=== PATIENT | female | born 1940 | race Caucasian/White ===

== ENCOUNTER 2018-01-06 04:00 | Inpatient (IN) ==
[2018-01-05 10:46] LABS: Basophils % 0.5 % (0.0-0.8); Eosinophils # 0.2 10*3/uL (0.0-0.87); Eosinophils % 2.5 % (0.00-10.9); Hematocrit 36.8 VOL% (35.7-47.0); Hemoglobin 11.9 GM/DL (12.0-16.0); Immature Granulocytes % 0.5 %; Immature Granulocytes Absolute 0.03 #; Lymphocytes % 16.2 % (21.3-54.2); Mean Corpuscular HGB Conc 32.3 GM/DL (32-36); Mean Corpuscular Hemoglobin 27 PG (27-34); Mean Corpuscular Volume 84.6 FL (87-102); Mean Platelet Volume 11.4 FL (9.6-12.0); Monocytes # 0.5 10*3/uL (0.11-0.8); Neutrophils # 4.6 10*3/uL (1.4-7.4); Neutrophils % 72.3 % (38.7-73.9); Platelet Count 181 T/CUMM (130-400); Red Blood Count 4.35 MC/CUMM (3.8-5.5); Red Cell Distribution Width 15.5 % (9.3-17.3); White Blood Count 6.4 T/CUMM (4-12)
[2018-01-05 10:55] LABS: PT Patient Result 10.2 SECS; Partial Thromboplastin Time 24.4 SECS (0-40)
[2018-01-05 11:04] LABS: Apearance,Urine CLEAR (Clear); Bacteria,Urine Moderate /HPF (Few); Bilirubin,Urine Negative (Negative); Blood, Urine Negative (Negative); Glucose,Urine (UA) Negative (Negative); Ketones,Urine Negative (Negative); Mucus,Urine Occasional /LPF (Occasional); Nitrite,Urine Positive (Negative); Protein,Urine Negative; RBC,Urine 1 /HPF (0-4); Squamous Epithelial Cell,Urine Occasional /HPF (0-10); Urine Color Yellow (Yellow); Urine Specific Gravity 1.013 (1.001-1.035); Urine Urobilinogen < 2.0 EU/DL (0.2-1.0); WBC,Urine 9 /HPF (0-6)
[2018-01-05 11:25] LABS: Osmolality,Calculated 281.4 MOS/KG (273-304)
[~2018-01-06 04:00] MED LIST: SODIUM CHLORIDE 0.9% 1,000 ML IV PRN
[2018-01-06] MEDS ORDERED: TISSUE ADHESIVE 1 EACH APPLICATOR TOP ONE (05:18)
[2018-01-06] MEDS ORDERED: VANCOMYCIN 1,000 MG VIAL ONE ×2 (05:18→18:28)
[2018-01-06] MEDS ORDERED: FAMOTIDINE 20 MG TABLET PO ONE (06:30)
[2018-01-06] MEDS ORDERED: CEFUROXIME INJ 1,500 MG in SYRINGE 1 EACH IV ONE (06:30)
[2018-01-06] MEDS ORDERED: DIAZEPAM 2 MG TABLET PO ONE (06:30)
[2018-01-06] MEDS ORDERED: DIAZEPAM 2 MG TABLET ONE (06:36)
[2018-01-06] MEDS ORDERED: FAMOTIDINE 20 MG TABLET ONE (06:36)
[2018-01-06] MEDS ORDERED: CEFUROXIME 1,500 MG VIAL ONE ×2 (07:13→19:21)
[2018-01-06] MEDS ORDERED: CALCIUM CHLORIDE 1,000 MG/10 ML SYRINGE IV ONE (07:32)
[2018-01-06] MEDS ORDERED: POTASSIUM CHLORIDE RIDER 0 ML IV ONE (07:32)
[2018-01-06] MEDS ORDERED: NITROGLYCERIN DRIP 0 MG/0 ML BOTTLE IV ONE (07:33)
[2018-01-06] MEDS ORDERED: SODIUM BICARBONATE 50 MEQ/50 ML SYRINGE IV ONE (07:33)
[2018-01-06] MEDS ORDERED: ALBUMIN 5% 12.5 GM/250 ML VIAL IV ONE (07:33)
[2018-01-06 07:58] LABS: ABG Base Excess 1.7 MMOL/L (-2.5-2.5); ABG HCO3 25.9 MMOL/L (20-26); ABG PCO2 39.8 MM HG (35-48); ABG PH 7.424 (7.35-7.45); ABG TCO2 23.7 MMOL/L (23-27); Glucose Heart Surgery 116 MG/DL (74-106); Hematocrit Heart Surgery 31.1 PERCENT (37-47); Hemoglobin Heart Surgery 10.1 G/DL (12.0-16.0); Ionized Calcium Arterial 1.09 MMOL/L (1.21-1.46); PCO2 Patient Temp Arterial 39.8 MMHG; PH Patient Temp Arterial 7.424; Patient Temperature 37 CELCIUS; Sodium Heart/CVR 137 MMOL/L (135-145)
[2018-01-06 08:17] LABS: Apearance,Urine CLEAR (Clear); Bacteria,Urine Many /HPF (Few); Bilirubin,Urine Negative (Negative); Blood, Urine Negative (Negative); Glucose,Urine (UA) Negative (Negative); Ketones,Urine Negative (Negative); Mucus,Urine Occasional /LPF (Occasional); Nitrite,Urine Positive (Negative); Protein,Urine Negative; RBC,Urine 1 /HPF (0-4); Urine Color Yellow (Yellow); Urine Urobilinogen < 2.0 EU/DL (0.2-1.0); WBC,Urine 18 /HPF (0-6)
[2018-01-06] MEDS ORDERED: HEPARIN 10,000 UNIT/10 ML VIAL ONE ×2 (08:26→09:58)
[2018-01-06] MEDS ORDERED: HEPARIN/NACL 0.9% 2 UNITS/ML 500 ML IV ONE (08:33)
[2018-01-06] MEDS ORDERED: AMINOCAPROIC ACID 5,000 MG/20 ML VIAL IV ONE (08:33)
[2018-01-06 08:43] LABS: Hemoglobin Heart Surgery 6.6 G/DL (12.0-16.0); PCO2 Patient Temp Venous 29.7 MM HG; PH Patient Temp Venous 7.551; PO2 Patient Temp Venous 42.3 MM HG; Potassium Heart/CVR 4.6 MMOL/L (3.5-5.1); VBG Base Excess 2.8 MEQ/L (0-4); VBG HCO3 25.9 MEQ/L (24-28); VBG Oxygen Saturation 83.8 %; VBG PCO2 32.4 MMHG (41-51); VBG PH 7.52; VBG PO2 48.7 MMHG (17-40)
[2018-01-06 09:17] LABS: Hematocrit Heart Surgery 24.4 PERCENT (37-47); Hemoglobin Heart Surgery 7.8 G/DL (12.0-16.0); PCO2 Patient Temp Venous 29.8 MM HG; PH Patient Temp Venous 7.53; PO2 Patient Temp Venous 48.8 MM HG; Potassium Heart/CVR 4.4 MMOL/L (3.5-5.1); VBG Base Excess 2.6 MEQ/L (0-4); VBG HCO3 26.7 MEQ/L (24-28); VBG Oxygen Saturation 92.2 %; VBG PCO2 34.4 MMHG (41-51); VBG PH 7.485; VBG PO2 59.4 MMHG (17-40)
[2018-01-06] MEDS ORDERED: PROTAMINE SULFATE 250 MG/25 ML VIAL IV ONE (09:57)
[2018-01-06] MEDS ORDERED: ALBUMIN 25% 25 GM/100 ML VIAL IV ONE (09:57)
[2018-01-06] MEDS ORDERED: MANNITOL 12.5 GM/50 ML VIAL IV ONE (09:58)
[2018-01-06] MEDS ORDERED: FUROSEMIDE 20 MG/2 ML VIAL ONE (09:58)
[2018-01-06] MEDS ORDERED: PHENYLEPHRINE 1 MG/10 ML SYRINGE IV ONE (09:58)
[2018-01-06] MEDS ORDERED: methylPREDNISolone SOD SUC 1,000 MG/8 ML VIAL ONE (09:58)
[2018-01-06] MEDS ORDERED: PROTAMINE SULFATE 50 MG/5 ML VIAL IV ONE ×3 (09:58→12:00)
[2018-01-06 10:07] LABS: ABG Base Excess -0.9 MMOL/L (-2.5-2.5); ABG HCO3 22.7 MMOL/L (20-26); ABG Oxygen Saturation 99.1 % (95-100); ABG PCO2 33.3 MM HG (35-48); ABG PH 7.452 (7.35-7.45); ABG PO2 430.9 MM HG (80-95); ABG TCO2 23.8 MMOL/L (23-27); Glucose Heart Surgery 183 MG/DL (74-106); Hemoglobin Heart Surgery 8.4 G/DL (12.0-16.0); Ionized Calcium Arterial 1.06 MMOL/L (1.21-1.46); PCO2 Patient Temp Arterial 33.3 MMHG; PH Patient Temp Arterial 7.452; PO2 Patient Temp Arterial 430.9 MM HG; Patient Temperature 37 CELCIUS; Potassium Heart/CVR 4.3 MMOL/L (3.5-5.1); Sodium Heart/CVR 131 MMOL/L (135-145)
[2018-01-06] MEDS: SODIUM CHLORIDE 0.45% 1,000 ML IV SCH ×2 (11:15)
[2018-01-06] MEDS ORDERED: MIDAZOLAM 10 MG/2 ML VIAL ONE ×2 (11:30→21:17)
[2018-01-06] MEDS ORDERED: CALCIUM CHLORIDE 1,000 MG/10 ML VIAL IV ONE (11:30)
[2018-01-06] MEDS ORDERED: ePHEDrine 50 MG/ML AMP ONE (11:30)
[2018-01-06] MEDS ORDERED: SEVOFLURANE 1 UNIT/15 MINUTE INH ONE ×2 (11:30→21:17)
[2018-01-06] MEDS ORDERED: VECURONIUM 10 MG VIAL IV ONE (11:31)
[2018-01-06] MEDS ORDERED: SODIUM CHLORIDE 0.9% 1,000 ML IV ONE (11:31)
[2018-01-06] MEDS ORDERED: ETOMIDATE 40 MG/20 ML VIAL IV ONE ×2 (11:31→21:18)
[2018-01-06] MEDS ORDERED: SODIUM CHLORIDE 0.9% 500 ML IV ONE (11:31)
[2018-01-06] MEDS ORDERED: PHENYLEPHRINE 10 MG/1 ML VIAL IV ONE ×2 (11:31→21:17)
[2018-01-06] MEDS ORDERED: NITROGLYCERIN DRIP 50 MG/250 ML BOTTLE IV ONE ×2 (11:31→21:25)
[2018-01-06] MEDS ORDERED: ACETAMINOPHEN 650 MG SUPP RECTAL PRN (11:32)
[2018-01-06] MEDS ORDERED: MIDAZOLAM 2 MG/2 ML VIAL IV PRN (11:32)
[2018-01-06] MEDS ORDERED: MORPHINE 10 MG/1 ML VIAL IV PRN (11:32)
[2018-01-06] MEDS ORDERED: CALCIUM CHLORIDE 1,000 MG/10 ML SYRINGE IV PRN (11:32)
[2018-01-06] MEDS ORDERED: MAGNESIUM SULF RIDER 4 GM in PREMIX 1 EACH IV PRN (11:32)
[2018-01-06] MEDS ORDERED: POTASSIUM CHLORIDE RIDER 20 MEQ in PREMIX 1 EACH IV PRN (11:32)
[2018-01-06] MEDS ORDERED: INSULIN REGULAR 100 UNIT/ML IV PRN (11:32)
[2018-01-06] MEDS ORDERED: ONDANSETRON 4 MG/2 ML VIAL IV PRN (11:32)
[2018-01-06] MEDS ORDERED: MORPHINE 4 MG/1 ML VIAL IV PRN (11:32)
[2018-01-06] MEDS ORDERED: DEXTROSE 50% 25 GM/50 ML VIAL IV PRN ×2 (11:32)
[2018-01-06] MEDS ORDERED: CHLORHEXIDINE 4% SOLN 118 ML BOTTLE TOP PRN (11:32)
[2018-01-06] MEDS ORDERED: SODIUM CHLORIDE 0.9% 250 ML IV PRN (11:32)
[2018-01-06 11:40] LABS: ABG Base Excess -1.5 MMOL/L (-2.5-2.5); ABG HCO3 23.2 MMOL/L (20-26); ABG PCO2 30.6 MM HG (35-48); ABG TCO2 20.1 MMOL/L (23-27); Glucose Heart Surgery 164 MG/DL (74-106); Hematocrit Heart Surgery 26.6 PERCENT (37-47); Hemoglobin Heart Surgery 8.6 G/DL (12.0-16.0); Potassium Heart/CVR 4.2 MMOL/L (3.5-5.1)
[2018-01-06 11:42] LABS: Basophils % 0.2 % (0.0-0.8); Eosinophils # 0.1 10*3/uL (0.0-0.87); Eosinophils % 0.9 % (0.00-10.9); Hematocrit 25.7 VOL% (35.7-47.0); Lymphocytes # 1.2 10*3/uL (1.4-4.0); Mean Corpuscular HGB Conc 32.7 GM/DL (32-36); Mean Corpuscular Hemoglobin 28 PG (27-34); Mean Corpuscular Volume 85.7 FL (87-102); Mean Platelet Volume 12.4 FL (9.6-12.0); Monocytes # 0.5 10*3/uL (0.11-0.8); Monocytes % 4.6 % (1.7-12.7); Neutrophils # 8.4 10*3/uL (1.4-7.4); Neutrophils % 81.3 % (38.7-73.9)
[2018-01-06 11:47] LABS: INR 1.2; PT Patient Result 12.7 SECS; Partial Thromboplastin Time 26.8 SECS (0-40)
[2018-01-06 11:49] LABS: Blood Urea Nitrogen 24 MG/DL (7-18); Calcium 7.9 MG/DL (8.5-10.1); Glucose 170 MG/DL (74-106); Osmolality,Calculated 282.7 MOS/KG (273-304); Potassium 4.3 MMOL/L (3.5-5.1); Sodium 138 MMOL/L (136-145)
[2018-01-06 11:54] LABS: Lactic Acid 4.6 MMOL/L (0.4-2.0)
[2018-01-06] MEDS: ALBUMIN 5% 12.5 GM in PREMIX 1 EACH IV PRN ×3 (12:00→13:51)
[2018-01-06] MEDS ORDERED: INSULIN REGULAR DRIP 100 ML IV SCH (12:00)
[2018-01-06 12:08] LABS: Hemoglobin 8.4 GM/DL (12.0-16.0); White Blood Count 10.4 T/CUMM (4-12)
[2018-01-06 12:09] LABS: Platelet Count 106 T/CUMM (130-400)
[2018-01-06] MEDS ORDERED: SODIUM CHLORIDE 0.9% 1,000 ML IV PRN (14:02)
[2018-01-06 15:16] LABS: ABG Base Excess 1.3 MMOL/L (-2.5-2.5); ABG HCO3 25.6 MMOL/L (20-26); ABG Oxygen Saturation 99.9 % (95-100); ABG PH 7.464 (7.35-7.45); ABG TCO2 24.6 MMOL/L (23-27); Glucose Heart Surgery 172 MG/DL (74-106); Potassium Heart/CVR 3.8 MMOL/L (3.5-5.1)
[2018-01-06 15:20] LABS: Hematocrit Heart Surgery 13.2 PERCENT (37-47); Hemoglobin Heart Surgery < 5.0 G/DL (12.0-16.0)
[2018-01-06] MEDS ORDERED: CALCIUM GLUCONATE 1,000 MG in SODIUM CHLORIDE 0.9% 100 ML IV ONE (16:44)
[2018-01-06] MEDS: HYDROmorphone 2 MG/1 ML VIAL IV PRN ×2 (17:35→23:18)
[2018-01-06] MEDS: CEFUROXIME INJ 1,500 MG in SYRINGE 1 EACH IV SCH ×2 (19:25→21:41)
[2018-01-06] MEDS ORDERED: LACTATED RINGERS 1,000 ML IV ONE (21:18)
[2018-01-06] MEDS ORDERED: ROCURONIUM 100 MG/10 ML VIAL IV ONE (21:18)
[2018-01-06] MEDS ORDERED: GLYCOPYRROLATE 0.4 MG/2 ML VIAL ONE (21:18)
[2018-01-06] MEDS ORDERED: SODIUM CHLORIDE 0.9% 250 ML IV ONE (21:18)
[2018-01-06 21:23] LABS: ABG Base Excess 0.9 MMOL/L (-2.5-2.5); ABG HCO3 25.3 MMOL/L (20-26); ABG Oxygen Saturation 98.5 % (95-100); ABG PCO2 34.6 MM HG (35-48); ABG PH 7.458 (7.35-7.45); ABG PO2 93.8 MM HG (80-95); ABG TCO2 22.8 MMOL/L (23-27); Glucose Heart Surgery 97 MG/DL (74-106); Hematocrit Heart Surgery 25.6 PERCENT (37-47); Hemoglobin Heart Surgery 8.2 G/DL (12.0-16.0); Potassium Heart/CVR 3.4 MMOL/L (3.5-5.1)
[2018-01-06] MEDS: NITROGLYCERIN DRIP 50 MG/250 ML BOTTLE IV PRN (21:40)
[2018-01-06 21:42] LABS: Basophils % 0.1 % (0.0-0.8); Eosinophils % 0.1 % (0.00-10.9); Hematocrit 21.8 VOL% (35.7-47.0); Hemoglobin 7.6 GM/DL (12.0-16.0); Immature Granulocytes % 0.5 %; Immature Granulocytes Absolute 0.04 #; Lymphocytes # 0.5 10*3/uL (1.4-4.0); Lymphocytes % 6.3 % (21.3-54.2); Mean Corpuscular HGB Conc 34.9 GM/DL (32-36); Mean Corpuscular Hemoglobin 29 PG (27-34); Mean Corpuscular Volume 83.2 FL (87-102); Mean Platelet Volume 10.9 FL (9.6-12.0); Monocytes # 0.3 10*3/uL (0.11-0.8); Monocytes % 4.3 % (1.7-12.7); Neutrophils # 6.8 10*3/uL (1.4-7.4); Neutrophils % 88.7 % (38.7-73.9); Platelet Count 115 T/CUMM (130-400); Red Blood Count 2.62 MC/CUMM (3.8-5.5); White Blood Count 7.7 T/CUMM (4-12)
[2018-01-06] MEDS: CHLORHEXIDINE 0.12% ORAL RINSE 60 ML BOTTLE SWISH/SPIT SCH (21:46)
[2018-01-06 21:55] LABS: Albumin 2.8 G/DL (3.4-5.0); Bilirubin,Total 1.9 MG/DL (0.2-1.0); Calcium 7.5 MG/DL (8.5-10.1); Osmolality,Calculated 283.3 MOS/KG (273-304); Potassium 3.5 MMOL/L (3.5-5.1); Total Protein 4.6 G/DL (6.4-8.3)
[2018-01-06 21:58] LABS: INR 1.1; PT Patient Result 11.3 SECS; Partial Thromboplastin Time 26.4 SECS (0-40)
[2018-01-07] MEDS: SODIUM CHLORIDE 0.45% 1,000 ML IV SCH ×4 (02:00→14:44)
[2018-01-07 04:31] LABS: Basophils % 0.1 % (0.0-0.8); Hematocrit 28.2 VOL% (35.7-47.0); Immature Granulocytes % 0.4 %; Immature Granulocytes Absolute 0.04 #; Lymphocytes # 0.6 10*3/uL (1.4-4.0); Lymphocytes % 5.7 % (21.3-54.2); Mean Corpuscular HGB Conc 35.1 GM/DL (32-36); Mean Corpuscular Hemoglobin 30 PG (27-34); Mean Corpuscular Volume 84.4 FL (87-102); Mean Platelet Volume 10.8 FL (9.6-12.0); Monocytes # 0.5 10*3/uL (0.11-0.8); Monocytes % 4.9 % (1.7-12.7); Neutrophils # 9.6 10*3/uL (1.4-7.4); Neutrophils % 88.9 % (38.7-73.9); Platelet Count 103 T/CUMM (130-400); Red Blood Count 3.34 MC/CUMM (3.8-5.5); Red Cell Distribution Width 14.3 % (9.3-17.3); White Blood Count 10.8 T/CUMM (4-12)
[2018-01-07 04:33] LABS: Hemoglobin 9.9 GM/DL (12.0-16.0)
[2018-01-07] MEDS: NITROGLYCERIN DRIP 50 MG/250 ML BOTTLE IV PRN (04:46)
[2018-01-07 05:12] LABS: Calcium 7.5 MG/DL (8.5-10.1); Osmolality,Calculated 281.5 MOS/KG (273-304)
[2018-01-07] MEDS: MAGNESIUM SULF RIDER 2 GM in PREMIX 1 EACH IV PRN ×2 (05:25→07:27)
[2018-01-07 05:36] LABS: ABG Base Excess -1.9 MMOL/L (-2.5-2.5); ABG HCO3 22.8 MMOL/L (20-26); ABG Oxygen Saturation 97.3 % (95-100); ABG PCO2 47.9 MM HG (35-48); ABG PH 7.317 (7.35-7.45); ABG PO2 96.3 MM HG (80-95); ABG TCO2 22.5 MMOL/L (23-27); Glucose Heart Surgery 140 MG/DL (74-106); Hematocrit Heart Surgery 31.2 PERCENT (37-47); Hemoglobin Heart Surgery 10.1 G/DL (12.0-16.0); Potassium Heart/CVR 4.1 MMOL/L (3.5-5.1)
[2018-01-07 06:36] LABS: ABG Base Excess -1.6 MMOL/L (-2.5-2.5); ABG HCO3 23.1 MMOL/L (20-26); ABG Oxygen Saturation 98.2 % (95-100); ABG PCO2 45.9 MM HG (35-48); ABG PH 7.335 (7.35-7.45); ABG TCO2 22.3 MMOL/L (23-27); Glucose Heart Surgery 140 MG/DL (74-106); Hematocrit Heart Surgery 31.4 PERCENT (37-47); Hemoglobin Heart Surgery 10.1 G/DL (12.0-16.0)
[2018-01-07] MEDS: INSULIN REGULAR 100 UNIT/ML SUBCUT SCH ×4 (08:10→20:18)
[2018-01-07] MEDS: CEFUROXIME INJ 1,500 MG in SYRINGE 1 EACH IV SCH ×2 (08:18→19:33)
[2018-01-07] MEDS: FUROSEMIDE 40 MG TABLET PO SCH (09:03)
[2018-01-07] MEDS: ASPIRIN EC 325 MG TABLET PO SCH (09:03)
[2018-01-07] MEDS: PANTOPRAZOLE 40 MG VIAL IV SCH (09:10)
[2018-01-07] MEDS: CHLORHEXIDINE 0.12% ORAL RINSE 60 ML BOTTLE SWISH/SPIT SCH ×2 (09:11→20:24)
[2018-01-07] MEDS ORDERED: KETOROLAC 15 MG/1 ML VIAL IV PRN (16:45)
[2018-01-07] MEDS: ATORVASTATIN 40 MG TABLET PO SCH (20:23)
[2018-01-07] MEDS: METOPROLOL TARTRATE 25 MG TABLET PO SCH (20:23)
[2018-01-07] MEDS ORDERED: METOPROLOL TARTRATE 25 MG TABLET PO SCH (21:00)
[2018-01-07] MEDS: HYDROmorphone 2 MG/1 ML VIAL IV PRN (22:22)
[2018-01-08] MEDS: INSULIN REGULAR 100 UNIT/ML SUBCUT SCH ×6 (00:19→20:41)
[2018-01-08 04:22] LABS: Calcium 7.6 MG/DL (8.5-10.1); Osmolality,Calculated 282.4 MOS/KG (273-304); Potassium 3.9 MMOL/L (3.5-5.1)
[2018-01-08 04:43] LABS: Basophils % 0.2 % (0.0-0.8); Eosinophils % 0.3 % (0.00-10.9); Hematocrit 28.5 VOL% (35.7-47.0); Hemoglobin 9.5 GM/DL (12.0-16.0); Immature Granulocytes % 0.6 %; Immature Granulocytes Absolute 0.06 #; Lymphocytes % 9.1 % (21.3-54.2); Mean Corpuscular HGB Conc 33.3 GM/DL (32-36); Mean Corpuscular Hemoglobin 29 PG (27-34); Mean Corpuscular Volume 86.9 FL (87-102); Mean Platelet Volume 11.7 FL (9.6-12.0); Monocytes # 1.2 10*3/uL (0.11-0.8); Neutrophils # 8.3 10*3/uL (1.4-7.4); Neutrophils % 78.8 % (38.7-73.9); Red Blood Count 3.28 MC/CUMM (3.8-5.5); Red Cell Distribution Width 15.2 % (9.3-17.3); White Blood Count 10.5 T/CUMM (4-12)
[2018-01-08 05:14] LABS: Platelet Count 83 T/CUMM (130-400)
[2018-01-08 05:32] LABS: Hypochromasia 1+; Microcytosis 1+; Ovalocytes Slight; Platelet Estimate Decreased; Polychromasia Slight
[2018-01-08] MEDS: cefTRIAXone 1,000 MG in SYRINGE 1 EACH IV SCH (07:55)
[2018-01-08] MEDS: amLODIPine 5 MG TABLET PO SCH (08:00)
[2018-01-08] MEDS: METOPROLOL TARTRATE 25 MG TABLET PO SCH (08:01)
[2018-01-08] MEDS: FUROSEMIDE 40 MG TABLET PO SCH (08:44)
[2018-01-08] MEDS: CHLORHEXIDINE 0.12% ORAL RINSE 60 ML BOTTLE SWISH/SPIT SCH ×2 (08:44→20:44)
[2018-01-08] MEDS: GABAPENTIN 300 MG CAPSULE PO SCH ×3 (08:44→20:42)
[2018-01-08] MEDS: GLUCOSAMINE 500 MG TABLET PO SCH ×2 (08:44→20:41)
[2018-01-08] MEDS: PANTOPRAZOLE 40 MG VIAL IV SCH (08:48)
[2018-01-08] MEDS: ASPIRIN EC 325 MG TABLET PO SCH ×2 (08:54→11:58)
[2018-01-08] MEDS: NABUMETONE 500 MG TABLET PO SCH ×3 (08:57→20:41)
[2018-01-08] MEDS ORDERED: NABUMETONE 750 MG TABLET PO SCH (09:00)
[2018-01-08] MEDS ORDERED: METOPROLOL TARTRATE 5 MG/5 ML VIAL IV ONE ×2 (17:46→18:07)
[2018-01-08] MEDS ORDERED: SOTALOL 80 MG TABLET PO SCH (18:03)
[2018-01-08] MEDS: SOTALOL 80 MG TABLET PO SCH (18:19)
[2018-01-08] MEDS: ATORVASTATIN 40 MG TABLET PO SCH (20:42)
[2018-01-09] MEDS: INSULIN REGULAR 100 UNIT/ML SUBCUT SCH ×6 (00:47→20:43)
[2018-01-09 05:00] LABS: Basophils % 0.2 % (0.0-0.8); Eosinophils # 0.2 10*3/uL (0.0-0.87); Hematocrit 28.3 VOL% (35.7-47.0); Hemoglobin 9.5 GM/DL (12.0-16.0); Immature Granulocytes % 0.4 %; Immature Granulocytes Absolute 0.04 #; Lymphocytes # 1.1 10*3/uL (1.4-4.0); Lymphocytes % 11.6 % (21.3-54.2); Mean Corpuscular HGB Conc 33.6 GM/DL (32-36); Mean Corpuscular Hemoglobin 29 PG (27-34); Mean Corpuscular Volume 87.6 FL (87-102); Mean Platelet Volume 12.5 FL (9.6-12.0); Neutrophils # 7.5 10*3/uL (1.4-7.4); Neutrophils % 75.8 % (38.7-73.9); Platelet Count 80 T/CUMM (130-400); Red Blood Count 3.23 MC/CUMM (3.8-5.5); Red Cell Distribution Width 15.3 % (9.3-17.3); White Blood Count 9.9 T/CUMM (4-12)
[2018-01-09 05:20] LABS: Osmolality,Calculated 282.4 MOS/KG (273-304); Potassium 3.7 MMOL/L (3.5-5.1)
[2018-01-09] MEDS: POTASSIUM CHLORIDE RIDER 10 MEQ in PREMIX 1 EACH IV PRN ×3 (05:47→08:30)
[2018-01-09 07:10] LABS: Eosinophils 3 % (0-10); Hypochromasia 1+; Lymphocytes 11 % (20-55); Ovalocytes Slight; Platelet Estimate Decreased; Segmented Neutrophils 77 % (50-85); Total Cells Counted 100
[2018-01-09 07:11] LABS: Microcytosis 1+
[2018-01-09] MEDS: SOTALOL 80 MG TABLET PO SCH (08:28)
[2018-01-09] MEDS: GABAPENTIN 300 MG CAPSULE PO SCH ×3 (08:29→20:35)
[2018-01-09] MEDS: NABUMETONE 500 MG TABLET PO SCH ×3 (08:29→20:35)
[2018-01-09] MEDS: ASPIRIN EC 325 MG TABLET PO SCH (08:29)
[2018-01-09] MEDS: GLUCOSAMINE 500 MG TABLET PO SCH ×2 (08:29→20:35)
[2018-01-09] MEDS: PANTOPRAZOLE 40 MG VIAL IV SCH (08:30)
[2018-01-09] MEDS: amLODIPine 5 MG TABLET PO SCH (08:30)
[2018-01-09] MEDS: FUROSEMIDE 40 MG TABLET PO SCH (08:30)
[2018-01-09] MEDS: cefTRIAXone 1,000 MG in SYRINGE 1 EACH IV SCH (08:31)
[2018-01-09] MEDS: CHLORHEXIDINE 0.12% ORAL RINSE 60 ML BOTTLE SWISH/SPIT SCH ×2 (08:37→20:44)
[2018-01-09] MEDS ORDERED: SOTALOL 80 MG TABLET PO SCH (09:00)
[2018-01-09] MEDS: SULFAMETHOX/TRIMETHOPRIM 800-160 MG TABLET PO SCH ×2 (10:40→20:35)
[2018-01-09] MEDS: ATORVASTATIN 40 MG TABLET PO SCH (20:35)
[2018-01-10] MEDS: INSULIN REGULAR 100 UNIT/ML SUBCUT SCH ×6 (00:17→21:22)
[2018-01-10] MEDS: ASPIRIN EC 325 MG TABLET PO SCH (08:34)
[2018-01-10] MEDS: SOTALOL 80 MG TABLET PO SCH (08:34)
[2018-01-10] MEDS: amLODIPine 5 MG TABLET PO SCH (08:34)
[2018-01-10] MEDS: GLUCOSAMINE 500 MG TABLET PO SCH ×2 (08:34→21:21)
[2018-01-10] MEDS: GABAPENTIN 300 MG CAPSULE PO SCH ×3 (08:34→21:21)
[2018-01-10] MEDS: SULFAMETHOX/TRIMETHOPRIM 800-160 MG TABLET PO SCH ×2 (08:34→21:22)
[2018-01-10] MEDS: FUROSEMIDE 40 MG TABLET PO SCH (08:35)
[2018-01-10] MEDS: NABUMETONE 500 MG TABLET PO SCH ×3 (08:35→21:22)
[2018-01-10] MEDS: PANTOPRAZOLE 40 MG VIAL IV SCH (08:39)
[2018-01-10] MEDS: CHLORHEXIDINE 0.12% ORAL RINSE 60 ML BOTTLE SWISH/SPIT SCH ×2 (08:39→21:29)
[2018-01-10] MEDS ORDERED: FUROSEMIDE 40 MG/4 ML VIAL IV ONE (10:38)
[2018-01-10] MEDS: BISACODYL 5 MG TABLET PO PRN (11:20)
[2018-01-10] MEDS: DOCUSATE SODIUM 100 MG CAPSULE PO SCH ×2 (11:20→21:28)
[2018-01-10] MEDS: ATORVASTATIN 40 MG TABLET PO SCH (21:22)
[2018-01-11] MEDS: INSULIN REGULAR 100 UNIT/ML SUBCUT SCH ×7 (00:27→21:47)
[2018-01-11 04:41] LABS: Basophils % 0.1 % (0.0-0.8); Eosinophils # 0.4 10*3/uL (0.0-0.87); Hematocrit 26.2 VOL% (35.7-47.0); Hemoglobin 8.7 GM/DL (12.0-16.0); Immature Granulocytes % 0.9 %; Immature Granulocytes Absolute 0.07 #; Lymphocytes % 11.8 % (21.3-54.2); Mean Corpuscular HGB Conc 33.2 GM/DL (32-36); Mean Corpuscular Hemoglobin 30 PG (27-34); Mean Corpuscular Volume 88.8 FL (87-102); Mean Platelet Volume 12.4 FL (9.6-12.0); Monocytes # 1.1 10*3/uL (0.11-0.8); Monocytes % 13.3 % (1.7-12.7); Neutrophils # 5.6 10*3/uL (1.4-7.4); Neutrophils % 68.9 % (38.7-73.9); Platelet Count 88 T/CUMM (130-400); Red Blood Count 2.95 MC/CUMM (3.8-5.5); Red Cell Distribution Width 14.8 % (9.3-17.3); White Blood Count 8.1 T/CUMM (4-12)
[2018-01-11 04:56] LABS: Calcium 7.5 MG/DL (8.5-10.1)
[2018-01-11 05:10] LABS: Eosinophils 6 % (0-10); Hypochromasia Slight; Lymphocytes 17 % (20-55); Microcytosis 1+; Segmented Neutrophils 71 % (50-85); Total Cells Counted 100
[2018-01-11 05:11] LABS: Atypical Lymphocytes Few; Platelet Estimate Decreased
[2018-01-11] MEDS: POTASSIUM CHLORIDE RIDER 10 MEQ in PREMIX 1 EACH IV PRN ×2 (08:59→10:00)
[2018-01-11] MEDS: PANTOPRAZOLE 40 MG VIAL IV SCH (08:59)
[2018-01-11] MEDS: GLUCOSAMINE 500 MG TABLET PO SCH ×2 (08:59→21:40)
[2018-01-11] MEDS: ASPIRIN EC 325 MG TABLET PO SCH (09:00)
[2018-01-11] MEDS: SULFAMETHOX/TRIMETHOPRIM 800-160 MG TABLET PO SCH ×2 (09:00→21:40)
[2018-01-11] MEDS: BISACODYL 5 MG TABLET PO PRN (09:00)
[2018-01-11] MEDS: DOCUSATE SODIUM 100 MG CAPSULE PO SCH ×2 (09:00→21:48)
[2018-01-11] MEDS: FUROSEMIDE 40 MG TABLET PO SCH (09:00)
[2018-01-11] MEDS: amLODIPine 5 MG TABLET PO SCH (09:00)
[2018-01-11] MEDS: SOTALOL 80 MG TABLET PO SCH (09:00)
[2018-01-11] MEDS: NABUMETONE 500 MG TABLET PO SCH ×3 (09:01→21:39)
[2018-01-11] MEDS: CHLORHEXIDINE 0.12% ORAL RINSE 60 ML BOTTLE SWISH/SPIT SCH ×2 (09:01→21:46)
[2018-01-11] MEDS: GABAPENTIN 300 MG CAPSULE PO SCH ×3 (09:01→21:40)
[2018-01-11] MEDS: ATORVASTATIN 40 MG TABLET PO SCH (21:40)
[2018-01-12 05:58] LABS: Basophils % 0.4 % (0.0-0.8); Eosinophils # 0.5 10*3/uL (0.0-0.87); Eosinophils % 6.7 % (0.00-10.9); Immature Granulocytes % 0.8 %; Immature Granulocytes Absolute 0.06 #; Lymphocytes % 13.5 % (21.3-54.2); Mean Corpuscular HGB Conc 33.3 GM/DL (32-36); Mean Corpuscular Hemoglobin 30 PG (27-34); Mean Corpuscular Volume 89.4 FL (87-102); Mean Platelet Volume 12.8 FL (9.6-12.0); Monocytes % 12.7 % (1.7-12.7); Neutrophils # 5.1 10*3/uL (1.4-7.4); Neutrophils % 65.9 % (38.7-73.9); Red Blood Count 3.02 MC/CUMM (3.8-5.5); Red Cell Distribution Width 14.8 % (9.3-17.3); White Blood Count 7.7 T/CUMM (4-12)
[2018-01-12 05:59] LABS: Platelet Count 101 T/CUMM (130-400)
[2018-01-12 06:15] LABS: Calcium 8.2 MG/DL (8.5-10.1); Osmolality,Calculated 289.1 MOS/KG (273-304); Potassium 4.2 MMOL/L (3.5-5.1)
[2018-01-12 06:24] LABS: Anisocytosis 1+; Platelet Estimate Adequate
[2018-01-12] MEDS: INSULIN REGULAR 100 UNIT/ML SUBCUT SCH ×2 (07:37→12:02)
[2018-01-12] MEDS: SOTALOL 80 MG TABLET PO SCH (08:32)
[2018-01-12] MEDS: GLUCOSAMINE 500 MG TABLET PO SCH (08:32)
[2018-01-12] MEDS: GABAPENTIN 300 MG CAPSULE PO SCH (08:33)
[2018-01-12] MEDS: ASPIRIN EC 325 MG TABLET PO SCH (08:33)
[2018-01-12] MEDS: SULFAMETHOX/TRIMETHOPRIM 800-160 MG TABLET PO SCH (08:33)
[2018-01-12] MEDS: FUROSEMIDE 40 MG TABLET PO SCH (08:33)
[2018-01-12] MEDS: NABUMETONE 500 MG TABLET PO SCH (08:33)
[2018-01-12] MEDS: DOCUSATE SODIUM 100 MG CAPSULE PO SCH (08:33)
[2018-01-12] MEDS: amLODIPine 5 MG TABLET PO SCH (08:33)
[2018-01-12] MEDS: PANTOPRAZOLE 40 MG VIAL IV SCH (08:34)
[2018-01-12] MEDS: CHLORHEXIDINE 0.12% ORAL RINSE 60 ML BOTTLE SWISH/SPIT SCH (08:34)
[2018-01-12 11:57] VITALS: BP 135/60
== END 2018-01-12 14:54 | disposition swing bed (61) | DRG 220 ==
LOC: N.SDSINP 05:20 → N.CVR 09:04 → N.ICU 01-07 08:47 → N.TELES 01-08 10:09
PROVIDERS: ADMIT Thoracic Surgery (Cardiothoracic Vascular Surgery); ATTEND Thoracic Surgery (Cardiothoracic Vascular Surgery)